=== PATIENT | male | born 1950 | race Caucasian/White ===

== ENCOUNTER 2016-12-12 06:02 | Day surgery (SDC) | payer BC ==
[2016-12-12] VITALS (9 sets, daily range): BP systolic 126–152; BP diastolic 76–97; PULSE 63–77; TEMP 97.7–98.9
[~2016-12-12] VITALS: Ht 190.5 cm; Wt 112.0 kg
[~2016-12-12 06:02] MED LIST: ALTACE 10MG TAB10 MG PO; ASPIRIN 81M81 MG/TA2 PO; CARDI-OMEGA1000 MG PO; GLUCOSAMINE PO; LIPITOR 40MG TA40 MG PO; LODINE500 MG PO; NIASPAN 500MG500 MG PO; NORVASC 5MG5 MG/TAB PO; TOPROL XL 25MG25 MG PO
[2016-12-12] MEDS ORDERED: PROZAC 20MG20 MG PO (06:35)
== END 2016-12-12 15:40 | disposition home or self-care (01) ==
LOC: SDCO 06:02 → SURG 08:50 → SDCO 15:40
DX: N30.20 Other chronic cystitis without hematuria (principal); Z85.51 Personal history of malignant neoplasm of bladder; I10 Essential (primary) hypertension; E78.00 Pure hypercholesterolemia, unspecified; Z87.891 Personal history of nicotine dependence
CPT/HCPCS: OP; C1769; J0461; J0690; J1100; J1885; J2270; J2405; J2704; J3010; J7120; Q9967

== ENCOUNTER 2020-10-17 12:19 | Day surgery (SDC) | payer MEDICARE, BC, OTHER ==
[2020-10-17] VITALS (11 sets, daily range): BP systolic 118–164; BP diastolic 70–95; PULSE 75–99; TEMP 97.6–98.7
[~2020-10-17] VITALS: Ht 190.5 cm; Wt 111.5 kg
[~2020-10-17 12:19] MED LIST changes: +PROZAC 20MG20 MG PO
--- NOTE | 2020-10-17 17:55 | NUR ---
PATIENT ADMITED INTO ROOM 323 POST OP TURBT. ISBELL TO DD WITH CBI INFUSING AT MOD RATE. URINE IS CLEAR AND PINK, NO CLOTS. NO C/O PAIN OR NAUSEA. IV FLUIDS INFUSING INTO LEFT FORARM. HEAD TO TOE ASSESSMENT COMPLETE. ORIENTED TO ROOM. CALL LIGHT IN REACH.
--- NOTE | 2020-10-17 19:48 | NUR ---
CHOKED ON DINNER TRAY. ABLE TO CLEAR FOOD WITHOUT PROBLEM.
--- NOTE | 2020-10-17 21:25 | NUR ---
Takes HS meds including Melatonin for sleep. Denies pain.
--- NOTE | 2020-10-17 21:30 | NUR ---
Pt reports feeling like his bladder is full, hand irrigated for no clots or tissue. Reports feeling better after catheter flushed and repositioned. IV fluids capped, SL to left forearm intact.
[2020-10-18 04:05] VITALS: BP 151/93; PULSE 74; TEMP 97.9
--- NOTE | 2020-10-18 06:00 | NUR ---
PT REPORTS RESTING WELL. ISBELL WITH YELLOW URINE.
[2020-10-18 07:42] VITALS: BP 142/82; PULSE 77; TEMP 98.5
--- NOTE | 2020-10-18 09:15 | NUR ---
Mitomycin teaching done. Dr Garcia has been in to see pt already. Consent reviewed and pt signed. He is aware to decrease po intake until mitomycin dwell time is near completion to avoid overdistention of bladder. he denies questions and we will wait until mitomycin has been prepared by pharmacy.
--- NOTE | 2020-10-18 10:45 | NUR ---
MITOMYCIN NOW AVAILABLE FROM PHARMACY, TOM TARIQ AT BEDSIDE. ISBELL CLAMPED AND MEDICATION INSTILLED BY NURSE. WILL MONITOR.
--- NOTE | 2020-10-18 10:55 | NUR ---
Pt hernandez catheter was clamped and drained after denying other questions. Margaret color urine was drained and flushed (600ml). After mitomycin was recieved from pharmacy and double checked with Elenita Gee RN by comparing printed label with entered order, it was instilled slowly into bladder. All CBI was off. Pt was again instructed to turn from side/back/side/stomach if he can tolerate. I will check on pt periodically during the dwell time. Chemotherapy precautions were posted and observed during this process with proper PPE and disposal of contamiinated items.
--- NOTE | 2020-10-18 10:57 | NUR ---
First visit from the outside sales consultant. No needs right now.
[2020-10-18 12:45] VITALS: BP 138/81; PULSE 69; TEMP 98.6
--- NOTE | 2020-10-18 13:12 | NUR ---
Pt reported at 1145 that he was doing well and was observed repositioning. When I arrived at 1245, he had about 75 ml of blue urine in his drainage bag and his hernandez was no longer clamped. I drained 200 additional ml from his hernandez and then flushed with 300ml of CBI. Urine was yellow and clear with out any sign of clots or bleeding. I removed 20ml from his hernandez balloon and then removed his hernandez catheter. All Chemowaste was placed in a bag and then into the chemo container. PPE and chemotherapy precautions were observed during these interactions. Report to Elenita SANTOS.
--- NOTE | 2020-10-18 16:00 | NUR ---
PATIENT COMPLETED 6 BOTTLE. URINE IS CLEAR YELLOW, NO CLOTS. PATIENT MEET DISCHARGE CRITERIA. CALLED , WILL BE HERE TO PICK HIM UP IN 45 MIN.
[2020-10-18 16:37] VITALS: BP 150/78; PULSE 78; TEMP 98.8
--- NOTE | 2020-10-18 17:00 | NUR ---
PATIENT'S IS HERE. GAVE DISCHARGE INSTRUCTIONS AND DISCUSSED F/U APT. ANSWERED QUESTIONS/CONCERNS. DC'D LEFT FORARM IV, COVERED SITE WITH GAUZE & COBAN. PATIENT IS DRESSED AND PERSONAL ITEMS PACKED. ESCORTED OUT VIA WC TO PERSONAL VEHICLE.
== END 2020-10-18 17:00 | disposition home or self-care (01) ==
LOC: SDCO 12:19 → SURG 17:55 → SDCO 10-18 17:00
DX: C67.9 Malignant neoplasm of bladder, unspecified (principal); E78.00 Pure hypercholesterolemia, unspecified; I10 Essential (primary) hypertension; N48.6 Induration penis plastica; Z98.52 Vasectomy status; Z79.82 Long term (current) use of aspirin; Z87.891 Personal history of nicotine dependence; Z20.822 Contact with and (suspected) exposure to COVID-19
CPT/HCPCS: OP; C1769; J1100; J1885; J2704; J3010; J3475; J7120; J9280; Q9967

== ENCOUNTER 2021-11-15 11:01 | Day surgery (SDC) | payer MEDICARE, OTHER ==
[2021-11-15] VITALS (10 sets, daily range): BP systolic 145–159; BP diastolic 73–99; PULSE 54–88; TEMP 97.4–97.9
[~2021-11-15] VITALS: Ht 190.5 cm; Wt 112.9 kg
[2021-11-15] MEDS ORDERED: ASPIRIN 81M81 MG/TA2 PO (12:15)
[2021-11-15] MEDS ORDERED: KAPSPARGO SPRIN25 MG PO (12:16)
[2021-11-15] MEDS ORDERED: MOBIC15 MG PO (12:19)
--- NOTE | 2021-11-15 19:17 | NUR ---
PT ARRIVES FROM PACU @ 1530, IS A&O X3, DENIES PAIN BUT STATES THAT HE FEELS PRESSURE LIKE HE NEEDS TO HAVE A BM. OXYGEN IS ON @ 2L NC INITIALLY, SATS ARE 98-100% SATS REMAIN 92-96% ON RA, OXYGEN LEFT OFF. SCDS APPLIED TO PT'S BILATERAL LEGS. IVF INFUSING INTO PERIPHERAL IV. CBI IS @ A SLOW RATE, URINE IS LIGHT PINK ET CLEAR. PT EDUCATED ON USE OF CALL LIGHT ET BED CONTROLS. INSTRUCTED TO CALL FOR ASSIISTANCE TO LEAVE BED, VERBALIZES UNDERSTNADING. PT TOLERATES CLEAR LIQUIDS WELL WITH NO NAUSEA, DIET IS ADVANCED TO GENERAL. PT EATS DINNER WITH NO PROBLEMS, STATES THAT HE WAS HUNGRY. PT CONTINUES TO FEEL THOUGH HE NEEDS TO HAVE A BM, IS ASSISTED WITH 2 PERSON SBA TO BR. PT'S GAIT IS STEADY. PT REPORTS HAVING A SMALL BM, STATES THAT THE PRESSURE HE FELT HAS IMPROVED. PT ASSISTED BACK INTO BED. RESPIRATIONS UNLABORED. DENIES OTHER NEEDS. REPORT GIVEN TO NIGHT NURSE.
--- NOTE | 2021-11-15 23:21 | NUR ---
PATIENT ALERT AND ORIENTED. STATES HE IS FEELING TIGHT/ACHE IN HIS ABD, PRN DAVID GIVEN. ISBELL WITH CBI SLOW TO DD WITH PINK OUTPUT. INT TO L WRIST PATENT AND FLUSHES EASILY. REQUESTS SLEEPING MED AND PRN HS MELATONIN GIVEN. DENIES ANY FURTHER NEEDS. CALL LIGHT WITHIN REACH.
[2021-11-16 03:07] VITALS: BP 133/88; PULSE 71; TEMP 97.7
[2021-11-16 07:42] VITALS: BP 163/73; PULSE 61; TEMP 97.5
--- NOTE | 2021-11-16 10:23 | NUR ---
SW met with patient to complete intake. Patient states that he lives in [facility] with his Nabila [phone]. Patient states that she is also been appointed as his DPOA/HC. Patient provides that he does not utilize DME and and is independent with ADL's. Patient states that his PCP is Dr. Javier, pharmacy is [facility] in [place]. Patient states that his plan is to return to his home [place] [address] and has no concerns with or further questions at this time. SW will continue to follow. DC plan: home
--- NOTE | 2021-11-16 10:42 | NUR ---
mary dc per order from Dr. Hong. Patient tolerated well & six bottle routine started
[2021-11-16 11:18] VITALS: BP 144/77; PULSE 64; TEMP 97.2
--- NOTE | 2021-11-16 14:11 | NUR ---
PT MET DISCHARGE CRITERIA, VSS, PAIN CONTROLLED. PT VOIDING ADEQUATLEY POST ISBELL REMOVAL. IV REMOVED WITHOUT COMPLICATIONS. DISCHARGE INSTRUCTIONS REVIEWED, PT VERBALIZED UNDERSTANDING. PT AWARE OF F/U APPT. PT DC TO HOME VIA WHEELCHAIR ACCOMPANIED BY WEB DEVELOPER.
== END 2021-11-16 14:14 | disposition home or self-care (01) ==
LOC: SDCO 11:01 → SURG 15:30 → SDCO 11-16 14:14
DX: C67.9 Malignant neoplasm of bladder, unspecified (principal); R33.9 Retention of urine, unspecified; I10 Essential (primary) hypertension; I25.10 Atherosclerotic heart disease of native coronary artery without angina pectoris; M19.90 Unspecified osteoarthritis, unspecified site; E66.9 Obesity, unspecified; F32.A Depression, unspecified; Z87.891 Personal history of nicotine dependence; Z79.82 Long term (current) use of aspirin; Z95.5 Presence of coronary angioplasty implant and graft; E78.5 Hyperlipidemia, unspecified
CPT/HCPCS: OP; C1769; C2617; J0690; J2250; J2270; J2704; J3010; J7120; Q9967

== ENCOUNTER 2022-06-13 08:48 | Day surgery (SDC) | payer MEDICARE, OTHER ==
[~2022-06-13] VITALS: Ht 190.5 cm; Wt 120.0 kg
[2022-06-13] VITALS (7 sets, daily range): BP systolic 143–162; BP diastolic 72–95; PULSE 68–79; TEMP 97.8–98.1
[~2022-06-13 08:48] MED LIST changes: +KAPSPARGO SPRIN25 MG PO; +MOBIC15 MG PO
--- NOTE | 2022-06-13 12:10 | NUR ---
Patient returns to room 3 per cart from PACU accompanied by Alicia SANTOS and is awake and alert. IV fluids infusing and site is free of redness. Temp 97.7 and room air sats 94%. States that he is needing up to the bathroom and gait steady with standby assist. Instructed to use call light for assist back to room.
--- NOTE | 2022-06-13 12:25 | NUR ---
Sitting up on edge of bed and sipping on Sprite. States that he voided blood tinged urine. Encouraged to continue forcing fluids.
--- NOTE | 2022-06-13 12:30 | NUR ---
Medicated with Percocet 5mg one tab for complaints of bladder pain at 6. Eating crackers.
--- NOTE | 2022-06-13 12:40 | NUR ---
Eating pudding and drinking water and Sprite. Room air sats 98%.
--- NOTE | 2022-06-13 12:55 | NUR ---
Laying on cart resting. Awaits ride home.
--- NOTE | 2022-06-13 14:05 | NUR ---
Dismissal instructions signed and patient assisted into wheelchair. Patient states that his son in law will be driving him home and his daughter and grandbaby are here in the [place]. Taken per wheelchair to waiting room and is going to visit daughter prior to going home. Gait steady. Dismissal instructions in hand.
--- NOTE | 2022-06-13 14:05 | NUR ---
Dismissal instructions given and voices understanding of these. Reinforced importance of forcing fluids.
== END 2022-06-13 14:30 | disposition home or self-care (01) ==
LOC: SDCO 08:48
DX: C65.1 Malignant neoplasm of right renal pelvis (principal)
CPT/HCPCS: C1769; J0690; J1100; J2405; J2704; J3010; J7120; Q9966